=== PATIENT | male | born 1990 | race Two or more races ===

== ENCOUNTER 2019-11-28 16:40 | Inpatient (IN) | payer MEDICAID ==
[~2019-11-28] VITALS: Ht 185.4 cm; Wt 70.3 kg
[2019-11-28] MEDS ORDERED: SERT50TA12 PO (17:11)
[2019-11-28] MEDS ORDERED: QUET25TA PO (17:11)
[2019-11-28] MEDS ORDERED: MIRT-92 PO (17:11)
[2019-11-28] MEDS ORDERED: SERT100T12 PO (17:12)
[2019-11-28 18:13] LABS: BASOPHILS % (AUTO) 0.6 % (0.0-2.0); EOSINOPHILS % (AUTO) 1.5 % (1.0-6.0); HEMATOCRIT 42.2 % (41-53); HEMOGLOBIN 14.4 g/dL (13.5-17.5); LYMPHOCYTES # (AUTO) 2.1 K/uL (1.0-4.8); LYMPHOCYTES % (AUTO) 37.6 % (22.0-44.0); MEAN CORPUSCULAR HEMOGLOBIN 31.7 pg (26.0-34.0); MEAN CORPUSCULAR HGB CONC 34.2 G/dL (31.0-37.0); MEAN CORPUSCULAR VOLUME 93 fL (80-100); MONOCYTES # (AUTO) 0.4 K/uL (0.1-1.0); MONOCYTES % (AUTO) 7.9 % (2.0-9.0); NEUTROPHILS # (AUTO) 2.9 K/uL (1.8-7.7); NEUTROPHILS % (AUTO) 52.4 % (40.0-70.0); PLATELET COUNT (AUTO) 164 K/uL (150-450); RED BLOOD CELL COUNT(AUTO) 4.56 MIL/uL (4.50-5.90); RED CELL DISTRIBUTION WIDTH 13.7 % (11.5-14.5)
[2019-11-28 18:24] LABS: ANION GAP 7 mmol/L (8-16); CALCIUM, TOTAL 9.2 mg/dL (8.8-10.5); CARBON DIOXIDE 31 mmol/L (22-29); CHLORIDE 107 mmol/L (98-107); CREATININE 0.79 mg/dL (0.60-1.30); GLOMERULAR FILTR. RATE CALC > 60 mL/min (>60); GLUCOSE,RANDOM 88 mg/dL (70-110); POTASSIUM 4.2 mmol/L (3.5-5.1); SODIUM SERUM 145 mmol/L (136-145); UREA NITROGEN, BLOOD 15 mg/dL (7-18)
[2019-11-28 18:29] LABS: ALANINE AMINOTRANSFERASE 19 U/L (12-78); ALBUMIN 4.2 g/dL (3.4-5.0); ALKALINE PHOSPHATASE 94 U/L (46-116); ASPARTATE AMINOTRANSFERASE 14 U/L (15-37); BILIRUBIN,TOTAL 0.3 mg/dL (0.1-1.0); TOTAL PROTEIN, SERUM 6.8 g/dL (6.4-8.2)
[2019-11-28] MEDS ORDERED: ZOLPIDEM TARTRATE 10 MG TABLET PO PRN (19:45)
[2019-11-28 21:17] VITALS: BP 113/69
[2019-11-29 08:16] LABS: CHOL/HDL RATIO 5.1 (4.2-7.3)
[2019-11-29 08:46] VITALS: BP 110/64
[2019-11-29] MEDS: SERTRALINE HCL 100 MG TABLET PO SCH (12:25)
[2019-11-29] MEDS: NICOTINE 14 MG/24 HOUR PATCH TD SCH (15:11)
[2019-11-29] MEDS: QUEtiapine FUMARATE 25 MG TABLET PO SCH (16:25)
[2019-11-29] MEDS ORDERED: NICOTINE 14 MG/24 HOUR PATCH TD PRN (16:45)
[2019-11-29] MEDS ORDERED: ONDANSETRON HCL 4 MG TABLET PO PRN (16:45)
[2019-11-29] MEDS ORDERED: LOPERAMIDE HCL 2 MG CAPSULE PO PRN (16:45)
[2019-11-29] MEDS ORDERED: MAG HYDROX/AL HYDROX/SIMETH ES 30 ML SUSPENSION UDCUP PO PRN (16:45)
[2019-11-29] MEDS ORDERED: PETROLATUM,WHITE 28 GM JELLY TP PRN (16:45)
[2019-11-29] MEDS ORDERED: GuaiFENesin/D-METHORPHAN [SUGAR-FREE] 200-20MG/10 ML SYRUP UDCUP PO PRN (16:45)
[2019-11-29] MEDS ORDERED: DOCUSATE SODIUM 100 MG CAPSULE PO PRN (16:45)
[2019-11-29] MEDS ORDERED: ALBUTEROL SULFATE HFA 90 MCG/PUFF 8 GM INHALER IH PRN (16:45)
[2019-11-29] MEDS ORDERED: ACETAMINOPHEN 325 MG TABLET PO PRN (16:45)
[2019-11-29] MEDS ORDERED: MAGNESIUM HYDROXIDE SUSPENSION 30 ML UDCUP PO PRN (16:45)
[2019-11-29] MEDS ORDERED: CloNIDine HCL 0.1 MG TABLET PO PRN (16:45)
[2019-11-29 18:59] VITALS: BP 119/72
[2019-11-29] MEDS: MIRTAZAPINE 15 MG TABLET PO SCH (20:10)
[2019-11-30] MEDS: QUEtiapine FUMARATE 25 MG TABLET PO SCH ×2 (08:48→16:10)
[2019-11-30] MEDS: SERTRALINE HCL 100 MG TABLET PO SCH (08:48)
[2019-11-30] MEDS: NICOTINE 14 MG/24 HOUR PATCH TD SCH (08:56)
[2019-11-30 09:02] VITALS: BP 119/70
[2019-11-30 09:11] VITALS: BP 119/70
[2019-11-30] MEDS: IBUPROFEN 400 MG TABLET PO PRN (09:13)
[2019-11-30] MEDS: LORazepam 2 MG TABLET PO PRN (18:05)
[2019-11-30] MEDS: MIRTAZAPINE 15 MG TABLET PO SCH (20:24)
[2019-12-01] MEDS: SERTRALINE HCL 100 MG TABLET PO SCH (08:18)
[2019-12-01] MEDS: QUEtiapine FUMARATE 25 MG TABLET PO SCH ×2 (08:18→16:29)
[2019-12-01] MEDS: NICOTINE 14 MG/24 HOUR PATCH TD SCH (08:18)
[2019-12-01 11:34] VITALS: BP 124/66
[2019-12-01 16:24] VITALS: BP 137/84
[2019-12-01] MEDS: MIRTAZAPINE 15 MG TABLET PO SCH (20:29)
[2019-12-02] MEDS: QUEtiapine FUMARATE 25 MG TABLET PO SCH ×2 (08:48→16:19)
[2019-12-02] MEDS: SERTRALINE HCL 100 MG TABLET PO SCH (08:48)
[2019-12-02] MEDS: NICOTINE 14 MG/24 HOUR PATCH TD SCH (08:50)
[2019-12-02 10:02] VITALS: BP 109/65
[2019-12-02] MEDS: LORazepam 2 MG TABLET PO PRN (16:19)
[2019-12-02 16:59] VITALS: BP 106/73
[2019-12-02] MEDS: MIRTAZAPINE 15 MG TABLET PO SCH (21:11)
[2019-12-03] MEDS: LORazepam 2 MG TABLET PO PRN ×3 (07:36→23:54)
[2019-12-03] MEDS: HALOPERIDOL 5 MG TABLET PO PRN (07:36)
[2019-12-03 09:12] VITALS: BP 114/69
[2019-12-03] MEDS: SERTRALINE HCL 100 MG TABLET PO SCH (09:22)
[2019-12-03] MEDS: QUEtiapine FUMARATE 25 MG TABLET PO SCH ×2 (09:22→16:19)
[2019-12-03] MEDS: NICOTINE 14 MG/24 HOUR PATCH TD SCH (09:24)
[2019-12-03 19:35] VITALS: BP 99/65
[2019-12-03] MEDS: MIRTAZAPINE 15 MG TABLET PO SCH (20:24)
[2019-12-03 23:55] VITALS: BP 135/95
[2019-12-03] MEDS: IBUPROFEN 400 MG TABLET PO PRN (23:55)
[2019-12-04 00:02] VITALS: BP 135/95
[2019-12-04 09:26] VITALS: BP 108/73
[2019-12-04] MEDS: NICOTINE 14 MG/24 HOUR PATCH TD SCH (09:41)
[2019-12-04] MEDS: QUEtiapine FUMARATE 25 MG TABLET PO SCH ×2 (09:41→17:06)
[2019-12-04] MEDS: SERTRALINE HCL 100 MG TABLET PO SCH (09:41)
[2019-12-04] MEDS: LORazepam 2 MG TABLET PO PRN (14:26)
[2019-12-04 16:48] VITALS: BP 106/67
[2019-12-04] MEDS: MIRTAZAPINE 15 MG TABLET PO SCH (20:26)
[2019-12-05 05:02] VITALS: BP 114/72
[2019-12-05] MEDS: SERTRALINE HCL 100 MG TABLET PO SCH (08:02)
[2019-12-05] MEDS: NICOTINE 14 MG/24 HOUR PATCH TD SCH (08:02)
[2019-12-05] MEDS: LORazepam 2 MG TABLET PO PRN ×2 (08:02→17:59)
[2019-12-05] MEDS: QUEtiapine FUMARATE 25 MG TABLET PO SCH ×2 (08:02→16:09)
[2019-12-05 08:44] VITALS: BP 133/98
[2019-12-05 16:54] VITALS: BP 113/72
[2019-12-05 17:59] VITALS: BP 119/84
[2019-12-05] MEDS: IBUPROFEN 400 MG TABLET PO PRN (17:59)
[2019-12-05] MEDS: MIRTAZAPINE 15 MG TABLET PO SCH (20:48)
[2019-12-06 05:00] VITALS: BP 117/72
[2019-12-06] MEDS: LORazepam 2 MG TABLET PO PRN ×2 (05:00→14:15)
[2019-12-06] MEDS: NICOTINE 14 MG/24 HOUR PATCH TD SCH (09:26)
[2019-12-06] MEDS: QUEtiapine FUMARATE 25 MG TABLET PO SCH ×2 (09:27→16:16)
[2019-12-06] MEDS: SERTRALINE HCL 100 MG TABLET PO SCH (09:27)
[2019-12-06 09:51] VITALS: BP 119/78
[2019-12-06 14:25] VITALS: BP 108/74
[2019-12-06] MEDS: IBUPROFEN 400 MG TABLET PO PRN (14:25)
[2019-12-06] MEDS: MIRTAZAPINE 15 MG TABLET PO SCH (20:23)
[2019-12-06 21:35] VITALS: BP 121/80
[2019-12-07 01:00] VITALS: BP 123/83
[2019-12-07] MEDS: SERTRALINE HCL 100 MG TABLET PO SCH (09:18)
[2019-12-07] MEDS: NICOTINE 14 MG/24 HOUR PATCH TD SCH (09:18)
[2019-12-07] MEDS: QUEtiapine FUMARATE 25 MG TABLET PO SCH ×2 (09:18→16:26)
[2019-12-07 10:09] VITALS: BP 120/84
[2019-12-07] MEDS: LORazepam 2 MG TABLET PO PRN ×2 (11:14→18:10)
[2019-12-07] MEDS: IBUPROFEN 400 MG TABLET PO PRN ×2 (11:14→20:28)
[2019-12-07 11:20] VITALS: BP 116/86
[2019-12-07 16:00] VITALS: BP 111/75
[2019-12-07 20:28] VITALS: BP 111/69
[2019-12-07] MEDS: MIRTAZAPINE 15 MG TABLET PO SCH (21:26)
[2019-12-08] MEDS: SERTRALINE HCL 100 MG TABLET PO SCH (09:00)
[2019-12-08] MEDS: QUEtiapine FUMARATE 25 MG TABLET PO SCH ×2 (09:00→16:06)
[2019-12-08] MEDS: LORazepam 2 MG TABLET PO PRN ×3 (09:00→19:02)
[2019-12-08] MEDS: NICOTINE 14 MG/24 HOUR PATCH TD SCH (09:00)
[2019-12-08 09:50] VITALS: BP 116/70
[2019-12-08] MEDS: HALOPERIDOL 5 MG TABLET PO PRN (13:08)
[2019-12-08] MEDS: MIRTAZAPINE 15 MG TABLET PO SCH (20:35)
[2019-12-09 05:05] VITALS: BP 101/75
[2019-12-09 08:50] VITALS: BP 131/90
[2019-12-09] MEDS: QUEtiapine FUMARATE 25 MG TABLET PO SCH ×2 (09:07→16:20)
[2019-12-09] MEDS: NICOTINE 14 MG/24 HOUR PATCH TD SCH (09:08)
[2019-12-09] MEDS: SERTRALINE HCL 100 MG TABLET PO SCH (09:08)
[2019-12-09] MEDS: LORazepam 2 MG TABLET PO PRN ×2 (12:32→18:24)
[2019-12-09 19:53] VITALS: BP 105/60
[2019-12-09] MEDS: MIRTAZAPINE 15 MG TABLET PO SCH (20:10)
[2019-12-10] MEDS: LORazepam 2 MG TABLET PO PRN (04:14)
[2019-12-10 04:21] VITALS: BP 122/80
[2019-12-10 08:00] VITALS: BP 128/82
[2019-12-10] MEDS: SERTRALINE HCL 100 MG TABLET PO SCH (08:05)
[2019-12-10] MEDS: QUEtiapine FUMARATE 25 MG TABLET PO SCH (08:05)
[2019-12-10] MEDS: NICOTINE 14 MG/24 HOUR PATCH TD SCH (08:06)
== END 2019-12-10 08:40 | disposition home or self-care (01) | DRG 885 ==
LOC: EMS 16:46 → 3EI 20:39
PROVIDERS: ADMIT Psychiatry & Neurology Child & Adolescent Psychiatry; ATTEND Psychiatry & Neurology Child & Adolescent Psychiatry
DX: F33.3 Major depressive disorder, recurrent, severe with psychotic symptoms (principal); R45.851 Suicidal ideations; F12.90 Cannabis use, unspecified, uncomplicated; F19.10 Other psychoactive substance abuse, uncomplicated; F41.1 Generalized anxiety disorder; K59.00 Constipation, unspecified; J30.9 Allergic rhinitis, unspecified; Z59.0 Homelessness; Z87.891 Personal history of nicotine dependence; Z91.19 Patient's noncompliance with other medical treatment and regimen; Z91.5 Personal history of self-harm; Z79.899 Other long term (current) drug therapy; Z71.51 Drug abuse counseling and surveillance of drug abuser
CPT/HCPCS: G0480